=== PATIENT | female | born 1965 | race Caucasian/White ===

== ENCOUNTER 2025-09-20 23:22 | Emergency (ER) | payer MEDICARE, SELFPAY ==
[2025-09-20 23:31] VITALS: BP 156/99
[2025-09-21 00:15] LABS: Hematocrit 40.6 % (37.0-47.0); Hemoglobin 14.1 g/dL (12.0-16.0); Mean Corp Hgb Conc. 34.7 g/dL (33.0-37.0); Mean Corpuscular Volume 97.8 fL (81.0-99.0); Nucleated Red Blood Cells % 0 %; Platelet Count 283 10^3/uL (130-400); Red Cell Dist. Width 12.4 % (11.5-14.5)
[2025-09-21 00:43] LABS: ALT (SGPT) 16 U/L (0-35); AST (SGOT) 25 U/L (14-36); Albumin 4.4 g/dl (3.5-5.0); Alkaline Phosphatase 98 U/L (38-126); Blood Urea Nitrogen 15 mg/dl (7-17); Calcium 9.3 mg/dl (8.4-10.2); Carbon Dioxide 23 mmol/L (22-30); Chloride 105 mmol/L (98-107); Glucose 94 mg/dl (70-99); Potassium 4.2 mmol/L (3.5-5.1); Sodium 138 mmol/L (135-145); Total Protein 7.4 g/dl (6.3-8.2); eGFR > 60.00
[2025-09-21 00:52] LABS: Troponin I < 0.012 ng/ml
[2025-09-21 02:02] VITALS: BP 106/69
--- NOTE | 2025-09-21 02:18 | ED.GENMED ---
History of Present Illness
General
Chief Complaint: Blood Pressure Problem
Source: patient
Exam Limitations: none
Time Seen by Provider: 09/21/25 02:10
Nursing documentation reviewed up to this point in time: agreed with
History of Present Illness
History of Present Illness:
60-year-old female with a past medical history of trigeminal neuralgia, IBS presents to the ER today with concerns of elevated blood pressure. Patient reports that she is currently taking care of her mom with dementia and she was going to check her
mom's blood pressure and she thought that out of curiosity, she should check her own blood pressure. She is not having any symptoms at that time that prompted her to check the blood pressure. When she checked the blood pressure with a wrist
pressure cuff, she noted to be elevated in the 170s. Patient checked at subsequent days and noted it to be still elevated and this concerned her because her blood pressure was usually low. She has not had any chest pain but has noted a constant
ache in the left arm the past few days. She denies any shortness of breath. She reports that sometimes arm pains associate with a bit of numbness and tingling and neck pain. She also reports a posterior headache past few days but she has not
needed to take any medication for this. She has never had to take any medication for blood pressure. Of note, patient reports that she has had viral symptoms past few days including a cough and runny nose but denies any fever at home, symptoms
have been getting better as of recently.
Past History
Past History
ED Past Medical History: Other (CMV, SVT, trigeminal neuralgia)
ED Past Surgical History: Cholecystectomy and Other (Heart ablation, nerve decompression for trigeminal neuralgia)
Social History
Tobacco: Former smoker
Alcohol: Occasional
Drug: None
Living: with family
Review of Systems
Review of Systems
All Other Systems: ROS reviewed and negative except as documented in HPI and ROS
Phy Exam
Physical Exam
Physical Exam:
General: Patient is well appearing and in no acute distress; non-toxic
Skin: Warm and dry, no rashes or lesions
Head: Normocephalic, atraumatic
Eyes: Sclera non-icteric. EOMs intact. PERRLA.
Cardiac: Regular rate and rhythm, no murmurs
Peripheral Vascular: No lower extremity swelling or edema
Pulm: Normal respiratory effort, no wheezes, rales, or rhonchi
Musculoskeletal: passive left shoulder abduction produces left upper arm pain, no palpable bony deformity, no pain with flexion and extension at the elbow
5/5 strength in b/l upper extremities
Neuro: CN II-XII intact, no focal neurologic deficits. Sensation intact. Normal finger to nose, heel to simpson.
Psychiatric: Appropriate mood and affect.
Course
Orders/Labs/Results
Orders:
Orders
09/20/25 23:32
ECG [Electrocardiogram (*1)] Urgent
Reason for Study: Hypertension, Benign
09/20/25 23:33
EKG- Treatment ONCE
09/20/25 23:59
Complete Blood Count/With Diff Urgent
Comprehensive Metabolic Panel Urgent
Troponin I Urgent
09/21/25 00:15
CR Chest - 2 Views Urgent
Comment: n
Reason For Exam: t
09/21/25 02:43
CT Head W/o Iv Contrast Urgent
Comment:
Reason For Exam: persistent daily headache, hypertension
Abnormal Lab Results
09/21/25
00:05
RBC 4.15 L 10^6/uL
(4.20-5.40)
MCH 34.0 H pg
(27.0-31.0)
09/21/25 00:05
09/21/25 00:05
Vital Signs
Initial and Last Documented VS:
Initial Vital Signs
Temp Pulse BP Pulse Ox
98.1 F 85 156/99 99
09/20/25 23:31 09/20/25 23:31 09/20/25 23:31 09/20/25 23:31
Last Documented Vital Signs
Temp Pulse Resp BP Pulse Ox
98.1 F 80 18 122/79 98
09/20/25 23:31 09/21/25 04:13 09/21/25 04:13 09/21/25 04:13 09/21/25 04:13
MDM/Problems Addressed
Differential Diagnosis Includes:
ddx include tension headache, migraine headache, intracerebral hemorrhage, essential hypertension, ACS, left arm sprain
MDM/Problems Addressed:
60-year-old female with a past medical history of trigeminal neuralgia, IBS presents to the ER today with concerns of elevated blood pressure. Patient reports that she is currently taking care of her mom with dementia and she was going to check her
mom's blood pressure and she thought that out of curiosity, she should check her own blood pressure. She is not having any symptoms at that time that prompted her to check the blood pressure.
Pressure was elevated consistently with wrist cuff. Patient has also had associated left arm discomfort and headaches daily for the past few days. On PE, she has no focal neurologic deficits. Her left arm pain is reproducible and worse with
movement.
Considering new daily headaches in the setting of hypertension, patient was sent for CT scan of the head which showed no acute intracranial abnormality. Her troponin is undetectable and her ecg showed no new ischemic changes. No significant changes
compared to prior. Blood work unremarkable. BP came down in the ER without acute intervention.
Suspect high readings related to inaccuracies of wrist cuff vs elevated BP in the setting of recent viral illness. Discussed home blood pressure log and follow up with primary, discussed strict return precautions. Patient stable for discharge.
*Pulse Oximetry
SaO2: 99
Oxygen Mode of Delivery: Room air
Patient hypoxic: no
*Critical Care Note
Total Time (30-74mins, 75-104mins- exclusive of procedures): Not Applicable
ED Attending Note
-
Portions of this chart may have been created with voice recognition software.� Occasional wrong word or��sound alike� substitutions may have occurred due to the inherent limitations of voice recognition software.
Discharge Plan
Departure
Patient Disposition: Home (Routine Discharge)
Date of Disposition: 09/21/25
Time of Disposition: 04:03
Patient with high blood pressure during this ER visit?: Yes
Condition: Good
Discharge Problem:
Hypertension, Acute tension headache
Instructions: High Blood Pressure (DC), BLOOD PRESSURE
Prescriptions:
No Action
gabapentin 800 MG tablet
800 mg PO TID
duloxetine 60 MG capsule,delayed release(DR/EC)
120 mg PO DAILY
Topamax
100 mg PO BID
dicyclomine 10 MG capsule
10 mg PO QIDPRN PRN (Reason: CRAMPY ABDO PAIN ) Qty: 10 0RF
Saccharomyces boulardii [Probiotic (S.boulardii)] 250 MG capsule
250 mg PO BID Qty: 20 0RF
vancomycin [Vancocin] 250 MG capsule
250 mg PO QID Qty: 20 0RF
Referrals:
NONE,* [Family Provider, Internal Medicine]
Activity Restrictions/Additional Instructions:
As discussed, your blood work is unremarkable. Your renal function is normal. Your troponin is undetectable. Your ECG is reassuring. Your CAT scan shows no evidence of acute intracranial abnormality.
Please keep a log of your blood pressures at home. Please take blood pressure at the same time every day with a arm cuff directly over the skin. Please control follow-up with your primary care provider in 1 week and bring the log of the blood
pressures.
PLEASE RETURN THE ER SHOULD SHE DEVELOP CHEST PAIN, JAW PAIN, SHORTNESS OF BREATH, INTRACTABLE NAUSEA OR VOMITING, OR ANY OTHER SIGNS OR SYMPTOMS WORRISOME TO YOU.
Interventions
Interventions:
*General Assessment Last Done: 09/20/25 23:51
*Neglect/Abuse Screening Last Done: 09/20/25 23:51
*ED COVID-19 Vaccine History Last Done: 09/20/25 23:51
*ED Influenza Vaccine History Last Done: 09/20/25 23:51
[facility] Fall Risk Assessment Tool Last Done: 09/21/25 02:02
*Risk Screen - Suicide (C-SSRS) Last Done: 09/20/25 23:51
*Nursing Disposition Last Done: 09/21/25 04:13
ED- Cardiac Assessment Last Done: 09/21/25 02:02
ED- Neurological Assessment Last Done: 09/21/25 02:02
ED- Pulmonary Assessment Last Done: 09/21/25 02:02
Discharge Date and Time
Discharge Date/Time: 09/21/25 04:14
Print Language: PASHTO
[2025-09-21 04:13] VITALS: BP 122/79
== END 2025-09-21 04:14 | disposition home or self-care (01) ==
LOC: EMR 23:22
PROVIDERS: EMERGENCY PHYSICIAN Student in an Organized Health Care Education/Training Program
DX: I10 Essential (primary) hypertension (principal); G44.209 Tension-type headache, unspecified, not intractable; K58.9 Irritable bowel syndrome, unspecified; G50.0 Trigeminal neuralgia; Z87.891 Personal history of nicotine dependence
CPT/HCPCS: 99284; 70450; 71046; 80053; 84484; 85025; 93005